=== PATIENT | female | born 1970 | race Caucasian/White ===

== ENCOUNTER 2016-06-16 05:58 | Emergency (ER) | payer OTHER ==
[~2016-06-16] VITALS: Ht 162.6 cm; Wt 69.7 kg
[2016-06-16 06:39] LABS: HEMATOCRIT 43.3 % (36.0-46.0); MCH 29.6 PG (29.0-34.0); MCHC 34.6 G/DL (30.0-36.0); MCV 85.4 FL (83-99); MEAN PLAT.VOLUME 10.1 uM^3 (9.5-12.4); PLATELET COUNT 334 K/uL (156-360); RBC DIS.WIDTH-CV 12.1 % (11.8-14.6); RBC DIS.WIDTH-SD 37.7 % (39-53); RED BLOOD COUNT 5.07 M/uL (3.80-5.20); WHITE BLOOD COUNT 8.6 K/uL (4.1-10.2)
[2016-06-16 06:52] LABS: CHLORIDE 110 mEq/L (99-109); POTASSIUM 3.8 mEq/L (3.7-5.4); SODIUM 139 mEq/L (136-147)
[2016-06-16 06:54] LABS: D-DIMER ELISA 0.16 mg/L FEU (< 0.57); GLUCOSE 112 mg/dL (70-99)
[2016-06-16 06:56] LABS: ANION GAP 9 MEQ/L (2-14); TOTAL BILIRUBIN 0.5 mg/dL (0.0-1.0)
[2016-06-16 06:58] LABS: ALKALINE PHOSPHATASE 66 IU/L (3-129); GFR ESTIMATE (CALCULATED) > 59 mL/min/
[2016-06-16 06:59] LABS: UREA NITROGEN (BUN) 10 mg/dL (9-23)
[2016-06-16 07:07] LABS: QUANTITATIVE HCG < 4.0 MIU/ML
[2016-06-16 07:13] LABS: ADD MIUA? YES; BILIRUBIN NEGATIVE; BLOOD SMALL; COLOR STRAW ((YELLOW)); GLUCOSE (STRIP) NEGATIVE; KETONES NEGATIVE; LEUKOCYTES NEGATIVE; NITRITE NEGATIVE; PROTEIN (STRIP) 100; SPECIFIC GRAVITY 1.005 (1.000-1.030); UROBILINOGEN 0.2 MG/DL (0.2-1.0)
[2016-06-16 07:23] LABS: BACTERIA NONE SEEN /HPF; EPITHELIAL CELLS RARE /HPF; MUCUS NONE SEEN /LPF; RED BLOOD CELLS 0-5 /HPF (0-5); UCUL ADDED? NO; WHITE BLOOD CELLS 0-5 /HPF (0-5)
[2016-06-16] MEDS ORDERED: ZOFRAN ODT4 MG PO (07:59)
[2016-06-16 08:15] VITALS: BP 120/71
== END 2016-06-16 08:17 | disposition home or self-care (01) ==
LOC: EME 05:58
DX: R11.2 Nausea with vomiting, unspecified (principal); E86.0 Dehydration; M79.1 Myalgia; Z88.8 Allergy status to other drugs, medicaments and biological substances; I10 Essential (primary) hypertension
CPT/HCPCS: 71020; 80053; 81003; 84702; 85027; 85379; 93005; 99281; 99285; J2405; J7030

== ENCOUNTER → 2017-03-03 | Outpatient (CLI) | payer OTHER ==
[~2017-03-03] MED LIST: ZOFRAN ODT4 MG PO
== END | disposition home or self-care (01) ==
LOC: CDC 12:47
DX: Z01.810 Encounter for preprocedural cardiovascular examination (principal); S63.592A Other specified sprain of left wrist, initial encounter; R94.31 Abnormal electrocardiogram [ECG] [EKG]
CPT/HCPCS: 93000

== ENCOUNTER → 2017-08-27 | Outpatient (CLI) | payer OTHER ==
[~2017-08-27] MED LIST changes: +ATIVAN0.5 MG PO; +COZAAR100 MG PO; +CYMBALTA60 MG PO; +INDERAL80 MG PO; +NORVASC10 MG PO
== END | disposition home or self-care (01) ==
LOC: OPR 07:23 → EDSTATUS 08:00 → OPR 08:00
PROC: BT211ZZ Computerized Tomography (CT Scan) of Right Kidney using Low Osmolar Contrast (ICD-10-PCS; principal; 2017-08-27)
PROC: 0TB03ZX Excision of Right Kidney, Percutaneous Approach, Diagnostic (ICD-10-PCS; principal; 2017-08-27)
DX: R80.9 Proteinuria, unspecified (principal); M79.7 Fibromyalgia; I12.9 Hypertensive chronic kidney disease with stage 1 through stage 4 chronic kidney disease, or unspecified chronic kidney disease; N18.2 Chronic kidney disease, stage 2 (mild)
CPT/HCPCS: 77012; 88305; 88313 90; 88346 90; 88348 90; J3010